=== PATIENT | female | born 1975 | race African-American/Black ===

== ENCOUNTER 2020-08-28 11:42 | Emergency (ER) | payer MEDICAID ==
[~2020-08-28] VITALS: Ht 175.3 cm; Wt 65.8 kg
[~2020-08-28 11:42] MED LIST: BACTRIM-DS1 EA PO; CLOTRIMAZOLE AF30 GM TOP; KEFLEX500 MG PO; NKM; VICODIN 5-5001 EACH PO
[2020-08-28] MEDS ORDERED: Lidocaine 1% Plain 30 ml INJ ONE (12:15)
--- NOTE | 2020-08-28 12:30 | NUR ---
ED Nurse Note: Patient presents to ER due to right knee swelling x 2 days. No redness or warmth noted. Reports no injury. Patient ambulating with steady gait. Patient awake, alert, oriented x4. Regular, unlabored breathing noted.
--- NOTE | 2020-08-28 12:40 | NUR ---
ED Nurse Note: ERMD at bedside performing artherocentsis
[2020-08-28] MEDS ORDERED: Hurricaine 20% Spray ORO ONE (12:45)
--- NOTE | 2020-08-28 12:50 | NUR ---
ED Nurse Note: IV site removed, LELAND bandage placed on pt right knee as ordered per ERMD
[2020-08-28 12:52] LABS: BASOPHILS % (AUTO) 1.7 % (0.0-2.0); EOSINOPHILS % (AUTO) 6.2 % (0.0-3.0); HEMATOCRIT 48.1 % (37.0-47.0); HEMOGLOBIN 14.7 G/DL (12.0-16.0); LYMPHOCYTES % (AUTO) 30.9 % (20.0-45.0); MEAN CORPUSCULAR VOLUME 100 FL (80-99); MONOCYTES % (AUTO) 11.6 % (1.0-10.0); NEUTROPHILS % (AUTO) 49.7 % (45.0-75.0); PLATELET COUNT 275 K/UL (150-450); WHITE BLOOD COUNT 4.7 K/UL (4.8-10.8)
[2020-08-28 12:55] VITALS: BP 126/81
[2020-08-28 12:55] LABS: INR 0.9 (0.9-1.1)
--- NOTE | 2020-08-28 12:55 | NUR ---
ER DISCHARGE NOTE: Patient is cleared to be discharged per ERMD, pt is aox4, on room air, with stable vital signs. pt was given dc and prescription instructions, pt was able to verbalize understanding, pt id band removed. pt is able to ambulate with steady gait. pt took all belongings.
[2020-08-28 12:58] LABS: CALCIUM 8.6 MG/DL (8.5-10.1); CREATININE 1.2 MG/DL (0.55-1.30)
[2020-08-28 13:04] LABS: ALBUMIN 3.4 G/DL (3.4-5.0)
[2020-08-28] MEDS ORDERED: NAPROXEN500 M1 ORAL (13:16)
[2020-08-28] MEDS ORDERED: ROBAXIN-750750 MG PO (13:16)
--- NOTE | 2020-08-28 13:16 | Emergency Room Report ---
History of Present Illness General Chief Complaint: Lower Extremity Injury Source: Patient Present Illness HPI 45-year-old -[place] female with no prior medical history presents with acute on chronic right anterior knee pain for "months". She states that she has been walking on her feet a lot which has exacerbated the symptoms in the past 2 days. She states that she noticed "a lump" on the anterior part of her thigh. She has not tried any medication to alleviate her symptoms. She denies trauma, fever, chills, nausea, vomiting, diarrhea, rash, pain with moving the knee joint, injection drug use, back pain, chest pain or any other symptoms. The patient's symptoms were gradual onset, severity was moderate, duration since several months, but last worse over the last 2 days. Quality: Aching Past medical history: Denies Past surgical history: Denies Smoking: Denies Alcohol use: Denies Drug use: Denies patient has not tried any medication to alleviate her symptoms Review of systems: CONST: No fevers or chills, No night sweats PULMONARY: No productive cough, No shortness of breath CARDIAC: No chest pain, No palpitations GI: No vomiting, No diarrhea , No melena_or_BRBPR : No dysuria, No hematuria, No discharge NEURO: No new_focal_weakness_or_numbness, No confusion, No vision changes 14 point Review of Systems is otherwise negative except per HPI Physical Exam: GENERAL: Awake_alert_ nontoxic, no acute distress Spo2 96% on room air-normal. Afebrile EYES: Extraocular muscles are intact. Conjunctivae clear. Lids without swelling ENT: External nose and ear normal_in_appearance. Oropharynx clear. Head_atraumatic, Moist_oral_mucosa NECK: No JVD. No meningismus. No thyromegaly. Supple. Trachea midline RESP: Normal respiratory effort. Symmetric rise. No stridor. Clear_to_auscultat ion_No_rales_No_wheezes CARDIAC: Regular rate and regular rhytm. No_significant pedal edema. ABDOMEN: Soft. Nondistended. Nontender_No_rebound_or_guarding. MSK: Normal muscle tone, without rigidity. Extremities without asymmetric deformity or swelling. Mild well circumscribed right distal thigh fluid collection. Nontender to palpation. No warmth with palpation. No palpable crepitus. No cellulitis. Negative Homans' sign. Full range of motion (active and passive of the right knee and right ankle in flexion, extension). Negative anterior and posterior drawer. Negative Steve sign. SKIN: Warm and dry. No visible cyanosis or pallor NEUROLOGIC: Alert, oriented x 3. Motor_and_sensation_grossly_intact. No truncal ataxia. Gait_normal Psych: Normal mood and affect, normal judgment and insight - COORDINATION OF CARE Case was discussed with: Patient Any labs and imaging that were ordered were interpreted as part of the medical decision making: Procedure note Abscess Incision and Drainage with irrigation by me: Informed consent was obtained including risks, benefits, and alternatives Location: Right anterior thigh needle aspiration with 18-gauge needle Anesthesia: Local 1% Lidocaine Technique: Needle aspiration using 18-gauge needle No serosanguineous or purulent material drained on needle aspiration attempt x2. Likely a bursa. Packing: None Complications: Neurovascularly intact post procedure Tolerated procedure well without complications Procedure note Right lower extremity Josiah wrap/splint: Josiah wrap applied to right knee Splint applied by tiffanei with direct supervision by me. Reassessed following splint application. Neurovascular intact. Compartments remain soft and compressible. Pt tolerated well without complications. Splint care instructions were discussed. Pt to follow up with orthopedics within 1 week to prevent future arthritis and buttermaker disability. Bedside ultrasound performed by me Using curvilinear probe, pocket of fluid was located superior to the knee over the distal right anterior thigh. No abscess noted Medical Decision Making/Plan: Differential diagnosis includes bursitis versus gout versus arthritis venous stasis. No evidence of compartment syndrome, septic arthritis, arterial occlusion, deep venous thrombosis, among others. Patient presents with acute on chronic knee pain for the last several months, worse over the last 2 days. On examination she is noted to have a well- circumscribed fluid-filled lesion seen on bedside ultrasound to the right anterior thigh. Provocative testing including anterior and posterior drawer, Steve's sign are negative. There was no traumatic mechanism or history of dislocation that was subsequently reduced. Pulse examination on the right lower extremity DP and PT are full and symmetric to the left lower extremity. Patient is afebrile. Labs are negative for any significant leukocytosis, bandemia, or acidosis. She is able to freely range the right knee in flexion and extension without any significant pain. Therefore septic knee or septic bursitis is unlikely. Due to diagnostic uncertainty, patient was offered a fine-needle aspiration of the fluid filled cavity seen on ultrasound. Aspiration was performed with an 18-gauge needle and was a dry tap. Suspect right anterior knee bursitis as the etiology of her symptoms. There is no indication of infection. No need for antibiotics. Patient may have venous stasis versus lymphedema versus arthritis NOS No evidence of any emergent cause of patient's symptoms Distally the patient has capillary refill <2 seconds and strong pulses. There is no pallor or pain out of proportion to exam. There is mild swelling with negative Homans sign The patient has no significant DVT risk factors or known hypercoagulable disorder. No evidence of arterial occlusion or deep venous thrombosis. The associated joints have full range of motion without any significant pain or restriction in mobility. There is no crepitus or pain out of proportion to exam and the patient is afebrile and nontoxic. There is no overlying significant redness, induration, tenderness, pus, or evidence of drainable fluid collection. No evidence of septic arthritis, necrotizing fasciitis, or soft tissue infection. No trauma, no injury , compartments are soft, the patient is able to bear weight and has no neurologic deficits. No evidence of fracture, dislocation or compartment syndrome at this time. Pertinent results reviewed with the patient. I educated the patient on the current treatment plan including the risks, benefits, and alternatives. I also discussed the extent and limitations of the current evaluation. The patient expressed understanding and agreement with plan. I recommended PMD follow-up within 1-2 days. Also advised that the patient return to the Emergency Department as soon as possible if they experience any new, persistent, or worsening symptoms. A Graphic Art Technician consult was offered to the patient prior to discharge but the patient declined. All needs were met during this ED visit including food and water, change of clothes, care home referral/resources, and transportation. Allergies: Coded Allergies: No Known Allergies (Unverified , 09/05/12) COVID-19 Screening Contact w/high risk pt: No Experienced COVID-19 symptoms?: No COVID-19 Testing performed MANAGER PARTY: No Patient History Last Menstrual Period: unk Nursing Documentation-PMH Past Medical History: No Stated History Physical Exam Vital Signs Date Time Temp Pulse Resp B/P (MAP) Pulse Ox O2 Delivery O2 Flow Rate FiO2 08/28/20 11:47 97.9 85 18 119/85 (96) 96 Room Air Medical Decision Making Diagnostic Impression: Primary Impression: Bursitis of right knee Additional Impression: Chronic pain of right knee Reevaluation Time: 13:15 Last Vital Signs Date Time Temp Pulse Resp B/P (MAP) Pulse Ox O2 Delivery O2 Flow Rate FiO2 08/28/20 12:55 98.1 86 17 126/81 100 Room Air Status: improved Disposition: HOME, SELF-CARE Admit Decision Time: 13:15 Condition: Stable Scripts Methocarbamol* (ROBAXIN-750*) 750 Mg Tablet 750 MG PO QID, #28 TAB 0 Refills Prov: Vickie Mendoza D.O. 08/28/20 Naproxen* (NAPROXEN*) 500 Mg Tablet.dr 500 MG ORAL TWICE A DAY for 7 Days, #14 TAB Prov: Vickie Mendoza D.O. 08/28/20 Patient Instructions: Bursitis, [id number] Additional Instructions: Instructions for patient/survey compiler: Follow up with your physician in 1-2 days. Follow-up with your doctor sooner if your condition requires a more timely clinical reevaluation. Return to the emergency department immediately if you feel that your condition is worsening or if you have any new or concerning symptoms. Review your discharge instructions and take any prescriptions given as instructed. [facility] PROVIDES FREE OR LOW-COST HEALTH SERVICES TO PEOPLE WHO CAN SHOW PROOF THAT THEY LIVE IN [facility]. TO FIND MORE CLINICS PARTNERED WITH THE COUNT INCLUDES THE [facility] TO PROVIDE SERVICE, PLEASE CALL . Vickie Mendoza D.O. Aug 28, 2020 13:16
[2020-08-28 13:18] LABS: BILIRUBIN,TOTAL 0.8 MG/DL (0.2-1.0)
== END 2020-08-28 12:55 | disposition home or self-care (01) ==
LOC: EMR 12:21
DX: M70.51 Other bursitis of knee, right knee (principal); G89.29 Other chronic pain
CPT/HCPCS: 10060; 36415; 80053; 84703; 85025; 85610; 85730; J2001; Z7502; 99283

== ENCOUNTER 2020-10-13 21:42 | Emergency (ER) | payer MEDICAID ==
[~2020-10-13] VITALS: Ht 175.3 cm; Wt 65.8 kg
[~2020-10-13 21:42] MED LIST changes: +NAPROXEN500 M1 ORAL; +ROBAXIN-750750 MG PO
[2020-10-13] MEDS ORDERED: NORCO 5-325 TA1 EAC1 ORAL (22:10)
[2020-10-13] MEDS ORDERED: HYDROcodone/Acetamin 5/325 tab ORAL ONE (22:15)
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
[2020-10-13 22:25] VITALS: BP 148/95
== END 2020-10-13 22:25 | disposition home or self-care (01) ==
LOC: EMR 22:12
DX: M25.561 Pain in right knee (principal)
CPT/HCPCS: 99282

== ENCOUNTER 2020-12-01 17:59 | Emergency (ER) | payer MEDICAID ==
[~2020-12-01] VITALS: Ht 175.3 cm; Wt 59.0 kg
[~2020-12-01 17:59] MED LIST changes: +NORCO 5-325 TA1 EAC1 ORAL
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
--- NOTE | 2020-12-01 19:42 | Diagnostic Imaging Report ---
EXAM: XR Chest, 1 View CLINICAL HISTORY: PAIN TECHNIQUE: Frontal view of the chest. COMPARISON: No relevant prior studies available. FINDINGS: Lungs: Unremarkable. No consolidation. Pleural space: Unremarkable. No pneumothorax. Heart: Unremarkable. No cardiomegaly. Mediastinum: Unremarkable. Bones/joints: Unremarkable. IMPRESSION: No acute cardiopulmonary disease.
[2020-12-01] MEDS ORDERED: ALBUTEROL SULF8.5 G1 INH (19:45)
[2020-12-01] MEDS ORDERED: ZITHROMAX250 MG ORAL (19:45)
[2020-12-01] MEDS ORDERED: PROMETHAZINE-D118 ML ORAL (19:45)
[2020-12-01] MEDS ORDERED: DICYCLOMINE HCL10 MG ORAL (19:45)
[2020-12-01 20:15] VITALS: BP 148/74
--- NOTE | 2020-12-01 20:15 | NUR ---
ER DISCHARGE NOTE: Patient is cleared to be discharged per ERMD, pt is aox4, on room air, with stable vital signs. pt was given dc and prescription instructions, pt was able to verbalize understanding, pt id band and iv site removed without complications. pt is able to ambulate with steady gait. pt took all belongings.
== END 2020-12-01 20:15 | disposition home or self-care (01) ==
LOC: EMR 18:46
DX: B34.9 Viral infection, unspecified (principal); R19.7 Diarrhea, unspecified; R05 Cough; Z20.822 Contact with and (suspected) exposure to COVID-19; Z87.74 Personal history of (corrected) congenital malformations of heart and circulatory system
CPT/HCPCS: 71045; U0004; Z7502; 99283

== ENCOUNTER → 2020-12-22 | Emergency (ER) | payer MEDICAID ==
[~2020-12-22] VITALS: Ht 175.3 cm; Wt 61.2 kg
[~2020-12-22] MED LIST changes: +ALBUTEROL SULF8.5 G1 INH; +Acetaminophen 500mg (ES) tab ORAL ONE; +DICYCLOMINE HCL10 MG ORAL; +FAMOTIDINE20 MG ORAL; +PROMETHAZINE-D118 ML ORAL; +SIMETHICONE80 MG ORAL; +Simethicone 80mg tab ORAL ONE; +TYLENOL EXTRA500 MG ORAL; +ZITHROMAX250 MG ORAL
[2020-12-22 04:22] VITALS: BP 154/98
--- NOTE | 2020-12-22 04:24 | NUR ---
ED Nurse Note: pt walked into the ed due to multiple problem; headache, abd pressure, and r knee pain. pt stated; she was covid 19 negative on dec 01. vitals are stable
--- NOTE | 2020-12-22 04:59 | Diagnostic Imaging Report ---
EXAM: XR Right Knee, 3 Views CLINICAL HISTORY: PAIN TECHNIQUE: Three views of the right knee. COMPARISON: none FINDINGS: Bones/joints: marginal osteophyte is moderate medially with moderate joint space narrowing and subchondral sclerosis. Lateral compartment is relatively preserved. Patellofemoral compartment osteophyte is mild. Bones and joints are otherwise unremarkable in appearance with no acute fracture or dislocation. Soft tissues: small joint effusion. IMPRESSION: Nothing acute. 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
[2020-12-22 05:21] VITALS: BP 154/98
--- NOTE | 2020-12-22 05:22 | NUR ---
ER DISCHARGE NOTE: Patient is cleared to be discharged per ERMD, pt is aox4, on room air, with stable vital signs. pt was given dc and prescription instructions, pt was able to verbalize understanding, pt id band removed without complications. pt is able to ambulate with steady gait. pt took all belongings.
--- NOTE | 2020-12-22 05:34 | Emergency Room Report ---
History of Present Illness General Chief Complaint: Headache Source: Patient Present Illness HPI 45-year-old female presents to ED for multiple complaints. States she has had a mild headache for the last day. Frontal, throbbing, 3 out of 10, nonradiating. States it comes and goes. States is very mild at this time. Denies photophobia or blurry vision. Denies neck stiffness. Denies nausea or vomiting. States she is also had some "stomach discomfort" for some time. States is just gas. Denies pain. Denies any diarrhea. Also complaining of swelling to her right knee. Has been seen here previously for this. Has had swelling to this knee for a long time. Denies any fall or injury. No other aggravating relieving factors. Denies any other associated symptoms Allergies: Coded Allergies: No Known Allergies (Unverified , 09/05/12) COVID-19 Screening Contact w/high risk pt: No Experienced COVID-19 symptoms?: No COVID-19 Testing performed [employer]: Yes - 12/01/20 COVID-19 Screening: Positive COVID-19 COVID-19 Testing Source: [facility] Patient History Past Medical History: none Past Surgical History: none Pertinent Family History: none Social History: Denies: smoking, alcohol use, drug use Last Menstrual Period: n/a Now: No Immunizations: UTD Reviewed Nursing Documentation: PMH: Agreed; PSxH: Agreed Nursing Documentation-PMH Past Medical History: No History, Except For Hx Hypertension: No - "hole in heart" Review of Systems All Other Systems: negative except mentioned in HPI Physical Exam Vital Signs Date Time Temp Pulse Resp B/P (MAP) Pulse Ox O2 Delivery O2 Flow Rate FiO2 12/22/20 04:04 98.4 95 18 154/98 (116) 95 Room Air Sp02 EP Interpretation: reviewed, normal General Appearance: no apparent distress, alert, GCS 15, non-toxic Head: normocephalic, atraumatic Eyes: bilateral eye normal inspection, bilateral eye PERRL ENT: hearing grossly normal, normal pharynx, no angioedema, normal voice Neck: full range of motion, supple/symm/no masses Respiratory: chest non-tender, lungs clear, normal breath sounds, speaking full sentences Cardiovascular #1: regular rate, rhythm, no edema Cardiovascular #2: 2+ carotid (R), 2+ carotid (L), 2+ radial (R), 2+ radial (L), 2+ dorsalis pedis (R), 2+ dorsalis pedis (L) Gastrointestinal: normal bowel sounds, non tender, soft, non-distended, no guarding, no rebound Rectal: deferred Genitourinary: normal inspection, no CVA tenderness Musculoskeletal: back normal, normal range of motion, gait/station normal, swelling - R knee Neurologic: alert, motor strength/tone normal, oriented x3, sensory intact, responsive, speech normal Psychiatric: judgement/insight normal, memory normal, mood/affect normal, no suicidal/homicidal ideation Reflexes: 3+ bicep (R), 3+ bicep (L), 3+ tricep (R), 3+ tricep (L), 3+ knee (R), 3+ knee (L) Lymphatic: no adenopathy Procedures Splinting Splinting : Consent: Verbal Pre-Made Type: JOSIAH wrap Pre-Proc Neuro Vasc Exam: normal Post-Proc Neuro Vasc Exam: normal Patient Tolerated: Well Complications: None Medical Decision Making Diagnostic Impression: Primary Impression: Gastritis Qualified Codes: K29.00 - Acute gastritis without bleeding Additional Impression: Arthritis of knee ER Course Hospital Course 45-year-old female presents with multiple complaints. Including headache. Stomach discomfort. Right knee swelling Differential diagnoses include: Fracture, dislocation, sprain, contusion Clinical course Patient placed on stretcher. After initial history is female in no acute distress. Cranial nerves II through XII intact. No change in visual acuity. No neck stiffness. Abdomen soft. No guarding or rebound. There is some swelling to the right knee however it appears to be more bony versus effusion. Given meds, x-ray ordered Xrays show significant DJD to right knee. Placed in Josiah wrap. Symptoms improved. Patient admits that she is only here because her is currently be evaluated in the ED. Requesting a sandwich. Safe for discharge with close outpatient follow-up Diagnosis - gastritis, arthritis of knee Stable and discharged to home. apply ice, keep elevated. weight bear as samantha erated. Followup with PMD. Return to ED if symptoms recur or worsen Other X-Ray Diagnostic Results Other X-Ray Diagnostic Results : X-Ray ordered: R knee # of Views/Limited Vs Complete: 3 View Indication: Pain EP Interpretation: Yes Interpretation: no dislocation, no soft tissue swelling, no fractures, other - DJD Impression: Other - arthritis Electronically Signed by: Electronically signed by Alexsander Bella MD Last Vital Signs Date Time Temp Pulse Resp B/P (MAP) Pulse Ox O2 Delivery O2 Flow Rate FiO2 12/22/20 05:21 98.4 18 154/98 95 Room Air 12/22/20 04:04 95 Status: improved Disposition: HOME, SELF-CARE Condition: Stable Scripts Acetaminophen* (TYLENOL EXTRA STRENGTH*) 500 Mg Tablet 500 MG ORAL Q8H PRN for Prn Headache/Temp > 101, #30 TAB 0 Refills Prov: Alexsander Bella MD 12/22/20 Famotidine* (Pepcid 20mg tablet*) 20 Mg Tablet 20 MG ORAL DAILY for Gerd, #30 TAB 0 Refills Prov: Alexsander Bella MD 12/22/20 Simethicone* (SIMETHICONE*) 80 Mg Tab.chew 80 MG ORAL Q8H PRN for GAS PAIN, #20 TAB 0 Refills Prov: Alexsander Bella MD 12/22/20 Referrals: Alise Fleming [facility] Patient Instructions: Gastritis, Adult, [id number] Alexsander Bella MD Dec 22, 2020 05:34
== END | disposition home or self-care (01) ==
LOC: EMR 04:21
DX: K29.70 Gastritis, unspecified, without bleeding (principal); M17.11 Unilateral primary osteoarthritis, right knee; Z86.16 Personal history of COVID-19
CPT/HCPCS: 73562; Z7502; 99283